=== PATIENT | female | born 1965 | race African-American/Black ===

== ENCOUNTER 2023-11-11 08:30 | Outpatient (CLI) | payer OTHER ==
[2023-11-11 10:26] LABS: BASOPHILS # (AUTO) 0.1 K/uL (0.00-0.22); BASOPHILS % (AUTO) 1.4 % (0.0-2.0); EOSINOPHILS # (AUTO) 0.2 K/uL (0-0.4); EOSINOPHILS % (AUTO) 4.1 % (0.0-4.0); HEMOGLOBIN 13.5 g/dL (12.0-16.0); LYMPHOCYTES # (AUTO) 2.3 K/uL (2.5-16.5); LYMPHOCYTES % (AUTO) 37.8 % (20.5-51.1); MEAN CORPUSCULAR HEMOGLOBIN 30 pg (27-31); MEAN CORPUSCULAR HGB CONC 34 g/dL (33-37); MEAN CORPUSCULAR VOLUME 87.7 fL (80-94); MONOCYTES # (AUTO) 0.6 K/uL (0.8-1.0); MONOCYTES % (AUTO) 9.4 % (1.7-9.3); NEUTROPHILS # (AUTO) 2.8 K/uL (1.8-7.7); NEUTROPHILS % (AUTO) 47.3 % (42.2-75.2); PLATELET COUNT (AUTO) 306 K/uL (140-450); RED BLOOD CELL COUNT(AUTO) 4.56 MIL/uL (4.20-5.40); RED CELL DISTRIBUTION WIDTH 14.2 % (11.6-13.7)
[2023-11-11 10:43] LABS: ALBUMIN 3.4 g/dL (3.4-5.0); ANION GAP 9.7 (8-16); CALCIUM 9.7 mg/dL (8.5-10.1); CARBON DIOXIDE 31.6 mmol/L (21-32); CREATININE 0.8 mg/dL (0.6-1.3); POTASSIUM 4.3 mmol/L (3.5-5.1); TOTAL BILIRUBIN 0.3 mg/dL (0.0-1.0); TOTAL PROTEIN, SERUM 8.4 g/dL (6.4-8.2)
[2023-11-11 10:53] LABS: CHOL/HDL RATIO 3.6 (1-4.5); THYROID STIMULATING HORMONE 1.43 uIU/mL (0.34-3.74)
[2023-11-12 09:07] LABS: HIV 1/0/2 ABS, QUAL Non Reactive (Non Reactive); T4 FREE (DIRECT) 1.07 ng/dL (0.82-1.77)
== END 2023-11-11 20:17 | disposition home or self-care (01) ==
LOC: MLB 08:30
DX: Z13.220 Encounter for screening for lipoid disorders (principal); Z13.1 Encounter for screening for diabetes mellitus; G57.93 Unspecified mononeuropathy of bilateral lower limbs; Z13.9 Encounter for screening, unspecified; E55.9 Vitamin D deficiency, unspecified; Z13.29 Encounter for screening for other suspected endocrine disorder; R94.6 Abnormal results of thyroid function studies; Z11.3 Encounter for screening for infections with a predominantly sexual mode of transmission; M51.36 Other intervertebral disc degeneration, lumbar region; M48.061 Spinal stenosis, lumbar region without neurogenic claudication; M25.78 Osteophyte, vertebrae
CPT/HCPCS: 36415; 72100; 80053; 82306; 83036; 83880; 84439; 84443; 85025; 86592; 86694; 86702

== ENCOUNTER 2024-01-04 11:33 | Outpatient (CLI) | payer OTHER | END 2024-01-04 19:59 | disposition home or self-care (01) | LOC: MLB 11:33 → MUS 19:59 | DX: L72.0 Epidermal cyst (principal) | CPT/HCPCS: 76536 ==